=== PATIENT | female | born 1960 | race Two or more races ===

== ENCOUNTER 2018-08-14 13:19 | Outpatient (CLI) | payer MEDICAID ==
[2018-08-14 13:49] LABS: BASOPHILS % (AUTO) 0.2 %; EOSINOPHILS % (AUTO) 0.5 %; HGB - HEMOGLOBIN 15.2 g/dL (12.0-16.0); LYMPHOCYTES # (AUTO) 1.7 10^3/uL (1.5-3.5); LYMPHOCYTES % (AUTO) 26.8 %; MEAN CORPUSCULAR HEMOGLOBIN 32.6 pg (27.0-31.0); MEAN CORPUSCULAR HGB CONC 34.8 g/dL (32.0-36.0); MEAN CORPUSCULAR VOLUME 93.7 fL (81.0-99.0); MONOCYTES # (AUTO) 0.4 10^3/uL (0.0-1.0); MONOCYTES % (AUTO) 6.2 %; NEUTROPHILS # (AUTO) 4.2 10^3/uL (1.5-6.6); NEUTROPHILS % (AUTO) 66.3 %; PLT - PLATELET COUNT 289 10^3/uL (130-450); RED BLOOD COUNT 4.66 10^6/uL (4.20-5.40); RED CELL DISTRIBUTION WIDTH 12.7 % (12.0-15.0); WHITE BLOOD COUNT 6.3 x10^3/uL (4.8-10.8)
== END 2018-08-14 13:20 | disposition home or self-care (01) ==
LOC: LAB 13:19
PROVIDERS: ATTEND Registered Nurse
DX: Z01.419 Encounter for gynecological examination (general) (routine) without abnormal findings (principal)
CPT/HCPCS: 36415; 84443; 85025

== ENCOUNTER 2018-08-15 07:56 | Outpatient (CLI) | payer MEDICAID ==
[2018-08-15 08:32] LABS: CHOLESTEROL 234 mg/dL; GLUCOSE,FASTING 99 mg/dL (70-100); HDL CHOLESTEROL 117 mg/dL; LDL CHOLESTEROL,CALCULATED 107 mg/dL; LDL/HDL RATIO 0.9 (<4.4); VLDL CHOLESTEROL 10 mg/dL
== END 2018-08-15 07:57 | disposition home or self-care (01) ==
LOC: LAB 07:56
PROVIDERS: ATTEND Registered Nurse
DX: Z01.419 Encounter for gynecological examination (general) (routine) without abnormal findings (principal)
CPT/HCPCS: 36415; 80061; 82947; 83721

== ENCOUNTER 2018-10-16 10:57 | Outpatient (CLI) | payer MEDICAID ==
[2018-10-16 11:49] LABS: T4 (THYROXINE) 6.01 ug/dL (6.09-12.23)
[2018-10-16 11:53] LABS: THYROID STIMULATING HORMONE 8.84 uIU/mL (0.34-5.60)
[2018-10-16 11:54] LABS: FREE T4 (FREE THYROXINE) 0.77 ng/dL (0.58-1.64)
== END 2018-10-16 10:58 | disposition home or self-care (01) ==
LOC: LAB 10:57
PROVIDERS: ATTEND Registered Nurse
DX: E07.9 Disorder of thyroid, unspecified (principal)
CPT/HCPCS: 36415; 84436; 84439; 84443

== ENCOUNTER 2018-12-16 08:59 | Outpatient (CLI) | payer MEDICAID ==
[2018-12-16 18:42] LABS: T4 (THYROXINE) 7.09 ug/dL (6.09-12.23)
[2018-12-16 18:46] LABS: THYROID STIMULATING HORMONE 2.92 uIU/mL (0.34-5.60)
[2018-12-16 18:48] LABS: FREE T4 (FREE THYROXINE) 0.84 ng/dL (0.58-1.64)
== END 2018-12-16 09:00 | disposition home or self-care (01) ==
LOC: LAB.F 08:59
PROVIDERS: ATTEND Registered Nurse
DX: E07.9 Disorder of thyroid, unspecified (principal)
CPT/HCPCS: 36415; 84436; 84439; 84443

== ENCOUNTER 2019-05-31 08:35 | Outpatient (CLI) | payer MEDICAID ==
[2019-05-31 11:19] LABS: T4 (THYROXINE) 6.87 ug/dL (6.09-12.23)
[2019-05-31 11:23] LABS: THYROID STIMULATING HORMONE 2.26 uIU/mL (0.34-5.60)
[2019-05-31 11:25] LABS: FREE T4 (FREE THYROXINE) 0.9 ng/dL (0.58-1.64)
== END 2019-05-31 08:36 | disposition home or self-care (01) ==
LOC: LAB 08:35
PROVIDERS: ATTEND Obstetrics & Gynecology
DX: E07.9 Disorder of thyroid, unspecified (principal)
CPT/HCPCS: 36415; 84436; 84439; 84443